=== PATIENT | female | born 1965 | race Two or more races ===

== ENCOUNTER 2021-01-29 05:29 | Emergency (ER) | payer OTHER ==
[~2021-01-29] VITALS: Ht 165.1 cm; Wt 74.8 kg
[2021-01-29] MEDS ORDERED: KETO10TA2 PO (08:26)
== END 2021-01-29 08:34 | disposition home or self-care (01) ==
LOC: ER 05:29
DX: S40.011A Contusion of right shoulder, initial encounter (principal); W18.39XA Other fall on same level, initial encounter; Y93.89 Activity, other specified; Y92.59 Other trade areas as the place of occurrence of the external cause; Y99.8 Other external cause status